=== PATIENT | male | born 1955 | race Hispanic/Latino ===

== ENCOUNTER 2016-06-14 06:33 | Day surgery (SDC) | payer BC ==
[2016-06-14] MEDS ORDERED: ECOTRIN PO ONE (06:58)
[2016-06-14] MEDS ORDERED: NACL 0.9% 500 ML 500 ML IV SCH (07:00)
[2016-06-14 07:41] LABS: Basophils % (Auto) 0.2 % (0.0-1.8); Eosinophils % (Auto) 1.6 % (0.0-4.3); Hematocrit 45.2 % (35.5-45.6); Hemoglobin 15.2 gm/dl (11.8-15.2); Mean Corpuscular HGB Conc 34 % (32-34); Mean Corpuscular Hemoglobin 30 pg (28-32); Mean Corpuscular Volume 89 fl (84-94); Platelet Count 219 K/mm3 (140-440); Red Blood Count 5.09 M/mm3 (3.65-5.03); Red Cell Distribution Width 13.8 % (13.2-15.2); White Blood Count 7.6 K/mm3 (4.5-11.0)
[2016-06-14 07:52] LABS: INR 1.01 (0.87-1.13)
[2016-06-14 07:53] LABS: Anion Gap 17 mmol/L; BUN/Creatinine Ratio 21.25; Blood Urea Nitrogen 17 mg/dL (9-20); Calcium 9.1 mg/dL (8.4-10.2); Carbon Dioxide 28 mmol/L (22-30); Chloride 101.5 mmol/L (98-107); Glucose 109 mg/dL (75-100); Potassium 4.2 mmol/L (3.6-5.0); Sodium 142 mmol/L (137-145)
[2016-06-14] MEDS ORDERED: CALAN ONE (08:34)
[2016-06-14] MEDS ORDERED: HEPARIN/NS 5000 UNIT/500ML(CATH LAB) 1,000 ML IR ONE (08:34)
[2016-06-14] MEDS ORDERED: XYLOCAINE 2% INFILTRATI ONE (08:34)
[2016-06-14] MEDS ORDERED: HEPARIN 10,000 UNITS/10 ML ONE (08:34)
[2016-06-14] MEDS ORDERED: SUBLIMAZE ONE (08:35)
[2016-06-14] MEDS ORDERED: VERSED ONE (08:35)
--- NOTE | 2016-06-14 10:02 | Cardiac Catherization Report ---
INDICATION FOR PROCEDURE: A 61-year-old white gentleman with history of atypical chest pain, is mostly at rest, has abnormal stress EKG with inferior ST-T changes suggestive of ischemia. Because of atypical chest pains and abnormal EKG, he is scheduled for cardiac catheterization for definitive diagnosis and treatment. The patient is aware of this procedure, potential complications, and the alternatives of therapy available. The patient's chest pain happened mostly at rest. DESCRIPTION OF PROCEDURE: The patient was brought to the catheterization laboratory in fasting condition. Right groin area was thoroughly cleansed with Betadine solution and sterilely drapes were applied. Local anesthesia was achieved using 2% Xylocaine. Right femoral artery puncture was made using #5-Maldivian micropuncture needle. The patient received moderate sedation with IV Versed and fentanyl prior to starting the procedure. A #5-Maldivian sheath was introduced. A #5-Maldivian multipurpose catheter was used to obtain the left ventriculogram done in the LEON and AZERI projections using hand injections followed by angiograms of the left coronary artery in multiple views. However, subsequently JR4 catheter was used to obtain the angiograms of the right coronary artery. At the end of the procedure, catheter and sheath were removed. Good hemostasis was achieved with manual pressure. No untoward complications were noted. The patient tolerated the procedure well. Left ventriculogram done. HEMODYNAMICS: 1. Opening aortic pressure 155/89, left ventricular pressure 155/24. No gradient across the aortic valve. Estimated ejection fraction 55%. 2. Left ventriculogram done in LEON and AZERI projections showed normal-sized left ventricle with normal contractility. End diastolic and end systolic volumes appear to be normal. Mitral regurgitation could not be evaluated. Estimated ejection fraction 55%. 3. Right coronary artery arises somewhat anteriorly. Otherwise, dominant vessel, angiographically smooth and normal. Left coronary artery arises normally from left coronary cusp. Left main, LAD, which curves around the apex and its branches and circumflex artery and its branches are angiographically smooth and normal. FINAL IMPRESSION: Normal-sized left ventricle with normal contractility. Except for somewhat anterior origin of the right coronary artery,angiographically, coronary arteries are normal. At this time, the patient's chest pain does not appear to be related to underlying coronary disease. Etiology of chest pain is not clear. No untoward complications were noted. Findings were explained to the patient. [facility]# [id number] REBECCA/RAMON LAY
--- NOTE | 2016-06-14 10:15 | Short Stay Summary ---
Short Stay Documentation Date of service: 06/14/16 Narrative H&P: obtained from office - History H&P: obtained from office - Allergies and Medications Current Medications: Allergies Penicillins Adverse Reaction (Verified 06/14/16 06:58) UNABLE TO BREATH CHOCOLATE Adverse Reaction (Uncoded 06/14/16 06:34) DIFFICULTY IN BREATHING Home Medications Medication Instructions Recorded Confirmed Last Taken Type Aspirin [Adult Low Dose Aspirin EC] 81 mg PO QDAY 06/14/16 06/14/16 06/12/16 History Mv-Mn/FA/Vit K/Lycop/Lut/Coq10 1 cap PO QDAY 06/14/16 06/14/16 06/12/16 History [Daily Multivitamin Capsule] Active Medications Sodium Chloride (Nacl 0.9% 500 Ml) 500 mls @ 50 mls/hr IV DIRECT BASIM Stop: 06/14/16 16:59 Last Admin: 06/14/16 07:21 Dose: 50 mls/hr - Brief post op/procedure progress note Date of procedure: 06/14/16 Procedure: LHC Anesthesia: local Estimated blood loss: none Pathology: none Condition: stable - Hospital course Hospital course: Pt is a 61 YO male with a past medical history significant for atypical chest pain and abnormal stress EKG. He presented today for scheduled elective LHC and subsequently underwent coronary angiography via right femoral artery per Dr. Lopez. The LHC revealed angiographically normal coronaries and the pt remained clinically and hemodynamically stable throughout the procedure. Pending he remains stable, he is cleared for discharge home today following the completion of his post-cath bedrest and order set. - Disposition Condition at discharge: Stable Disposition: DISCHARGED TO HOME OR SELFCARE - Discharge Diagnoses (1) Chest pain, atypical Status: Chronic Short Stay Discharge Plan Activity: no restrictions Weight Bearing Status: Full Weight Bearing Diet: regular Wound: open to air, keep clean and dry Follow up with: YAYO KAISER MD [Staff Physician] - 7 Days
[2016-06-14 13:17] VITALS: BP 131/76
== END 2016-06-14 13:37 | disposition home or self-care (01) ==
LOC: OPU 06:33
PROVIDERS: ATTEND Internal Medicine
DX: R07.89 Other chest pain (principal); Z80.41 Family history of malignant neoplasm of ovary; Z82.3 Family history of stroke; Z83.3 Family history of diabetes mellitus; Z82.49 Family history of ischemic heart disease and other diseases of the circulatory system
CPT/HCPCS: 36415; 80048; 85025; 85610; 85730; 93005; 93010; 93458; J1644; J2250; J3010; J7040; Q9967